=== PATIENT | female | born 2005 | race Caucasian/White ===

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

== ENCOUNTER 2024-06-29 09:46 | Outpatient (REF) | payer BC, SELFPAY ==
[2024-07-01 11:38] LABS: Keppra (Levetiracetam) 18 ug/mL (10-40)
== END 2024-06-29 09:47 | disposition home or self-care (01) ==
LOC: NPINS 09:46
PROVIDERS: PCP Family Medicine; Visit Provider Physician Assistant
DX: R56.9 Unspecified convulsions (principal); Z51.81 Encounter for therapeutic drug level monitoring
CPT/HCPCS: 80177

== ENCOUNTER 2025-05-23 09:50 | Outpatient (CLI) | payer BC, SELFPAY | END 2025-05-23 09:51 | disposition home or self-care (01) | PROVIDERS: PCP Family Medicine; Visit Provider Family Medicine | DX: F32.1 Major depressive disorder, single episode, moderate (principal); F41.1 Generalized anxiety disorder; N92.0 Excessive and frequent menstruation with regular cycle; R53.83 Other fatigue; Z13.6 Encounter for screening for cardiovascular disorders | CPT/HCPCS: 80053; 80061; 84443 ==